=== PATIENT | male | born 1975 | race Caucasian/White ===

== ENCOUNTER 2021-05-27 07:10 | Emergency (ER) | payer SELFPAY ==
[~2021-05-27] VITALS: Ht 162.6 cm; Wt 83.1 kg
--- NOTE | 2021-05-27 07:41 | NUR ---
FIRST CONTACT: HIATAL HERNIA, INTERMITTENT PAIN X2 YEARS. WORSE TODAY. PT TO ROOM WITH STEADY GAIT. POSTIONED TO COMFORT AND ATTACHED TO MONITORS. AT BEDSIDE. REBEL. SHANIQUE. AWAITNG ORDERS.
--- NOTE | 2021-05-27 07:57 | NUR ---
DR. RAMIREZ TO BEDSIDE FOR EVALUATION.
--- NOTE | 2021-05-27 08:15 | NUR ---
PT TO CT.
--- NOTE | 2021-05-27 08:20 | NUR ---
PT BACK FROM CT. VSS. BAY.
[2021-05-27 08:40] LABS: BASOPHILS % (AUTO) 1 % (0-1); EOSINOPHILS % (AUTO) 3 % (1-7); LYMPHOCYTES % (AUTO) 34 % (22-44); MEAN CORPUSCULAR HEMOGLOBIN 31.1 pg (27.5-34.5); MEAN CORPUSCULAR HGB CONC 34.6 g/dL (33.2-36.2); MEAN PLATELET VOLUME 6.5 fL (7.4-10.4); MONOCYTES % (AUTO) 6 % (2-9); NEUTROPHILS % (AUTO) 56 % (42-75); PLATELET COUNT 271 x10^3/uL (130-400); RED BLOOD COUNT 4.76 x10^6/uL (4.38-5.82); RED CELL DISTRIBUTION WIDTH 13.5 % (9.4-14.8)
[2021-05-27 08:48] LABS: ALANINE AMINOTRANSFERASE 20 U/L (12-78); ALBUMIN 3.9 g/dL (3.4-5.0); ANION GAP 3 mmol/L (5-15); CALCIUM 9.3 mg/dL (8.5-10.1); CHLORIDE 108 mmol/L (98-107); CREATININE 0.88 mg/dL (0.7-1.3)
[2021-05-27 08:50] LABS: ALKALINE PHOSPHATASE 67 U/L (45-117); BILIRUBIN,TOTAL 0.3 mg/dL (0.2-1.0); TOTAL PROTEIN 7.7 g/dL (6.4-8.2)
[2021-05-27 10:20] VITALS: BP 129/75
--- NOTE | 2021-05-27 10:20 | NUR ---
PT RESTING IN BED. POC DISCUSSED. AWAITING GEN SURGERY TO CALL BACK. NADN. LUQUE.
--- NOTE | 2021-05-27 11:19 | NUR ---
PT LEFT BEFORE D/C ORDERS AND PAPERWORK WAS COMPLETE. MD WISE.
== END 2021-05-27 11:21 | disposition left against medical advice (07) ==
LOC: ED 07:33
DX: K43.9 Ventral hernia without obstruction or gangrene (principal)
CPT/HCPCS: 36415; 74176; 80053; 83690; 85025; 99284